=== PATIENT | male | born 1945 | race Caucasian/White ===

== ENCOUNTER 2017-09-04 09:37 | Day surgery (SDC) | payer MEDICARE, OTHER ==
[2017-09-04 10:17] LABS: HEMATOCRIT 39.7 % (42.0-52.0); HEMOGLOBIN 13.4 g/dl (13.5-17.5); MEAN CORPUSCULAR HEMOGLOBIN 32.9 pg (27.0-33.0); MEAN CORPUSCULAR HGB CONC 33.8 g/dl (32.0-36.5); MEAN CORPUSCULAR VOLUME 97.5 fl (80.0-96.0); PLATELET COUNT, AUTOMATED 205 10^3/uL (150-450); RED BLOOD COUNT 4.07 10^6/uL (4.30-6.10); RED CELL DISTRIBUTION WIDTH 12.2 % (11.5-14.5); WHITE BLOOD COUNT 4.6 10^3/uL (4.0-10.0)
[2017-09-04 10:36] LABS: ANION GAP 3 MEQ/L (8-16); BLOOD UREA NITROGEN 14 MG/DL (7-18); CARBON DIOXIDE LEVEL 31 MEQ/L (21-32); CHLORIDE LEVEL 109 MEQ/L (98-107); CREATININE FOR GFR 0.83 MG/DL (0.70-1.30); GLOMERULAR FILTRATION RATE > 60.0 (>42); GLUCOSE, FASTING 102 MG/DL (70-100); POTASSIUM SERUM 4.5 MEQ/L (3.5-5.1); SODIUM LEVEL 143 MEQ/L (136-145)
[2017-09-04] MEDS ORDERED: dexameTHASONE 4 MG/ML 1ML VIAL (J1100) As Ordered (11:23)
[2017-09-04] MEDS ORDERED: GLYCOPYRROLATE INJ 0.2 MG/ML 2 ML VIAL As Ordered ×2 (11:23)
[2017-09-04] MEDS ORDERED: ONDANSETRON 4MG/2ML VIAL (J2405) As Ordered (11:23)
[2017-09-04] MEDS ORDERED: METOCLOPRAMIDE INJ 10MG/2ML VIAL (J2765) As Ordered (11:23)
[2017-09-04] MEDS ORDERED: PROPOFOL 200 MG/20 ML VIAL As Ordered (11:23)
[2017-09-04] MEDS ORDERED: MIDAZOLAM INJ 2 MG/2 ML VIAL (J2250) As Ordered (11:23)
[2017-09-04] MEDS ORDERED: LIDOCAINE 2% INJ 100 MG/5 ML SDV (FOR ANES.) As Ordered (11:23)
[2017-09-04] MEDS ORDERED: ROCURONIUM BROMIDE 50 MG/5 ML VIAL As Ordered (11:23)
[2017-09-04] MEDS ORDERED: fentaNYL 100 MCG/2 ML INJECTION (J3010) As Ordered (11:23)
[2017-09-04] MEDS ORDERED: NEOSTIGMINE 10 MG/10 ML VIAL (J2710) As Ordered (11:24)
[2017-09-04] MEDS ORDERED: PHENYLephrine HCL 500 MCG/5 ML (100MCG/ML) SYRINGE (J2370) As Ordered (12:25)
[2017-09-04] MEDS: LIDOCAINE W/EPINEPHRINE 1% 20ML VIAL As Ordered (12:41)
[2017-09-04] MEDS: METHYLENE BLUE 0.5% (5MG/ML) 10 ML AMP (PROVAYBLUE)(Q9968 PER 1MG) As Ordered (12:41)
[2017-09-04] MEDS: OXYMETAZOLINE NASAL SPRAY (AFRIN) As Ordered (12:42)
[2017-09-04] MEDS ORDERED: IBUPROFEN 800 MG TAB PO (13:30)
[2017-09-04] MEDS ORDERED: HYDROMORPHONE HCL 0.5 MG/ 0.5 ML SYRINGE (J1170 PER 1) IV (13:30)
[2017-09-04] MEDS ORDERED: fentaNYL 100 MCG/2 ML INJECTION (J3010) IV (13:30)
[2017-09-04] MEDS ORDERED: LR 1,000 ML IV (13:30)
[2017-09-04] MEDS ORDERED: ONDANSETRON 4MG/2ML VIAL (J2405) IV (13:30)
[2017-09-04] MEDS ORDERED: PERCOCET 5MG/325MG TAB PO ×2 (13:30)
== END 2017-09-04 14:50 | disposition home or self-care (01) ==
LOC: M SDC 09:37
DX: J34.2 Deviated nasal septum (principal); I10 Essential (primary) hypertension; E78.5 Hyperlipidemia, unspecified; K21.9 Gastro-esophageal reflux disease without esophagitis; G47.30 Sleep apnea, unspecified; Z79.82 Long term (current) use of aspirin; Z79.899 Other long term (current) drug therapy
CPT/HCPCS: 30520

== ENCOUNTER 2018-02-07 07:40 | Day surgery (SDC) | payer MEDICARE, OTHER ==
[~2018-02-07 07:40] MED LIST: MIDAZOLAM INJ 2 MG/2 ML VIAL (J2250) As Ordered
[2018-02-07] MEDS: OFLOXACIN 0.3 % (OCUFLOX) OPTH SOL 5ML OD (08:59)
[2018-02-07] MEDS: PROPARACAINE 0.5% OPHTH SOL 15ML OD (08:59)
[2018-02-07] MEDS: TROPICAMIDE 1% OPHTH SOLN 2ML OD (08:59)
[2018-02-07] MEDS: PHENYLEPHRINE 2.5% OPHTH SOL 2ML OD (08:59)
[2018-02-07] MEDS: POVIDONE-IODINE 5% OPHTH PREP SOL 30ML As Ordered (10:08)
[2018-02-07] MEDS ORDERED: fentaNYL 100 MCG/2 ML INJECTION (J3010) As Ordered (10:09)
[2018-02-07] MEDS: LIDOCAINE 0.75%/EPINEPHRINE 0.025% IN BSS 1ML SYR INTRACAMERAL (OR ONLY) As Ordered (10:14)
[2018-02-07] MEDS: BALANCED SALT IRRIGATION SOLUTION 500ML BAG (FOR OR EYE MACHINE) As Ordered (10:16)
[2018-02-07] MEDS: CEFUROXIME 1MG/0.1ML INTRACAMERAL INJ As Ordered (10:19)
[2018-02-07] MEDS: DUOVISC (0.50ML VISCOAT/0.55ML PROVISC) OPHTH KIT As Ordered (10:19)
== END 2018-02-07 11:00 | disposition home or self-care (01) ==
LOC: M SDC 07:40
DX: H25.11 Age-related nuclear cataract, right eye (principal); I10 Essential (primary) hypertension; E78.5 Hyperlipidemia, unspecified; M12.9 Arthropathy, unspecified; K21.9 Gastro-esophageal reflux disease without esophagitis; R06.02 Shortness of breath; M54.9 Dorsalgia, unspecified; F41.9 Anxiety disorder, unspecified; H81.49 Vertigo of central origin, unspecified ear; J44.9 Chronic obstructive pulmonary disease, unspecified; R06.83 Snoring; G47.33 Obstructive sleep apnea (adult) (pediatric); Z79.899 Other long term (current) drug therapy; Z79.82 Long term (current) use of aspirin; Z85.46 Personal history of malignant neoplasm of prostate; Z72.0 Tobacco use
CPT/HCPCS: 66984

== ENCOUNTER → 2018-09-13 | Outpatient (CLI) | payer MEDICARE, OTHER ==
[~2018-09-13] MED LIST changes: +ABIL1TAB13 PO; +ALBU83IN INH; +AMLO5TAB6 PO; +ANOR1AER INH; +ASPI81TA26 PO; +BUSP5TA PO; +DIVA1CAP PO; +DOXY-350 PO; +LABE20TAB PO; +LANS30TA5 PO; +LOSA100T50 PO; -MIDAZOLAM INJ 2 MG/2 ML VIAL (J2250) As Ordered; +NIAC500T5 PO; +OCUVTAB PO; +PERCOCET PO; +PROAAER10 INH; +SIMV20TA2 PO; +SYST1SOL OU
--- NOTE | 2018-09-13 09:36 | REP ---
LOW DOSE LUNG SCREENING CT: Low dose lung screening CT performed in the axial plane. There are no prior studies for comparison. There is a calcified granuloma in the right middle lobe near the minor fissure. No suspicious nodular opacities are seen bilaterally. There are mild linear fibro atelectatic changes in both lower lobes. The heart is not enlarged. No pleural effusion is seen. Calcified lymph node is seen in the AP window. No mediastinal contour abnormality is seen. There is also small calcified lymph node in the right hilum. There are degenerative changes of the spine. IMPRESSION: LUNG RADS category 2 benign. Evidence of prior granulomatous disease. No suspicious nodular opacity seen bilaterally. Followup lung screening CT recommended in 12 months. Electronically Signed by Wesley Du MD 09/13/2018 07:23 P
== END ==
LOC: M RAD 07:29
PROVIDERS: ATTEND Internal Medicine Pulmonary Disease
DX: F17.210 Nicotine dependence, cigarettes, uncomplicated (principal)

== ENCOUNTER → 2019-10-08 | Outpatient (CLI) | payer MEDICARE, OTHER ==
[~2019-10-08] MED LIST changes: +AMLO1TAB24 PO; -AMLO5TAB6 PO; -SIMV20TA2 PO; +SIMV20TA22 PO
--- NOTE | 2019-10-08 10:59 | REP ---
REASON: Tobacco abuse. Followup. COMPARISON: 09/13/2018 As per the protocol, only lung window images were sent to the read station for interpretation. There are no new abnormal nodules, masses, or opacities. Grossly, the mediastinum and pulmonary reynaldo are stable. Grossly, the imaged upper abdomen and imaged osseous structures are stable. IMPRESSION: Stable lung RADS category 2 exam. Electronically Signed by Rupert Kelsey DO 10/08/2019 05:19 P
== END ==
LOC: M RAD 06:49
PROVIDERS: ATTEND Physician Assistant
DX: F17.218 Nicotine dependence, cigarettes, with other nicotine-induced disorders (principal)

== ENCOUNTER → 2020-06-05 | Outpatient (CLI) | payer MEDICARE, OTHER ==
[~2020-06-05] MED LIST changes: +COQ-100C5 PO; +LEVO500T3 PO; +NEUR100C PO
== END ==
LOC: M LABSMTC 08:06
PROVIDERS: ATTEND Anesthesiology
DX: Z01.812 Encounter for preprocedural laboratory examination (principal); Z20.822 Contact with and (suspected) exposure to COVID-19

== ENCOUNTER 2020-06-10 06:47 | Day surgery (SDC) | payer MEDICARE, OTHER ==
[~2020-06-10] VITALS: Ht 172.7 cm; Wt 85.3 kg
[~2020-06-10 06:47] MED LIST changes: +CEFUROXIME 1MG/0.1ML INTRACAMERAL INJ As Ordered ONE; +DUOVISC (0.50ML VISCOAT/0.55ML PROVISC) OPHTH KIT As Ordered ONE; +POVIDONE-IODINE 5% OPHTH PREP SOL 30ML As Ordered ONE
[2020-06-10] MEDS ORDERED: OFLOXACIN 0.3 % (OCUFLOX) OPTH SOL 5ML OS ONE (07:00)
[2020-06-10] MEDS ORDERED: TROPICAMIDE 1% OPHTH SOLN 2ML OS ONE (07:00)
[2020-06-10] MEDS ORDERED: PHENYLEPHRINE 2.5% OPHTH SOL 2ML OS ONE (07:00)
[2020-06-10] MEDS ORDERED: PROPARACAINE 0.5% OPHTH SOL 15ML OS ONE (07:00)
[2020-06-10] MEDS ORDERED: MIDAZOLAM INJ 2MG/2ML VIAL (J2250 PER 1MG) As Ordered ONE (07:17)
[2020-06-10] MEDS ORDERED: fentaNYL 100 MCG/2 ML INJECTION (J3010) As Ordered ONE (07:17)
[2020-06-10] MEDS ORDERED: BSS IRR 500ML/OMIDRIA 4ML IRR BAG (OR ONLY) As Ordered ONE (09:02)
[2020-06-10 09:45] VITALS: BP 134/75
--- NOTE | 2020-06-11 12:22 | RO ---
OPERATIVE NOTE DATE OF OPERATION: 06/10/2020 PREOPERATIVE DIAGNOSIS: 1. Visually significant nuclear sclerotic cataract, left eye. POSTOPERATIVE DIAGNOSIS: 1. Visually significant nuclear sclerotic cataract, left eye. PROCEDURE: 1. Cataract extraction with use of phacoemulsification, and placement of intraocular lens, AU00T0, 20.5 D, left eye. SURGEON: Julio C Martinez DO ANESTHESIA: Local (Omidria with MAC) COMPLICATIONS: None POSTOPERATIVE CONDITION: Stable INDICATIONS FOR SURGERY: 1. Blurred vision affecting patient's activities of daily living. DESCRIPTION OF PROCEDURE: The patient was seen in the preoperative area and properly identified. The correct operative eye was identified and marked. The patient received topical anesthetic, antibiotics, and topical dilating drops. The patient was then transferred to the operating room. The correct side was re-identified and a time-out was performed. The eye was prepped and draped in a sterile fashion. The eyelids were isolated with Tegaderm tape and the lids were held open with an adjustable speculum. A 1.0mm paracentesis incision was made. Omidria was then injected into the anterior chamber. Viscoelastic was then injected into the anterior chamber through the paracentesis. Using a 2.4mm sharp-tipped keratome, the anterior chamber was entered via a temporal clear cornea incision. A continuous curvilinear capsulorrhexis was created with Utrata forceps. Hydrodissection was performed with BSS on a blunt cannula until the nucleus was able to rotate freely. The crystalline lens was phacoemulsified and aspirated. Irrigation/aspiration was used to remove the cortical material Cohesive viscoelastic was placed into the capsular bag to deepen it. The implant was placed into the capsular bag and allowed to unfold. Placement was confirmed by visualizing the anterior capsulorrhexis. Irrigation/aspiration was used to remove the viscoelastic. The clear corneal incision was hydrated with BSS on a blunt cannula. The lens was well positioned. Intracameral antibiotic was injected into the anterior chamber. The incisions were then tested for leaks and found to be negative. The eye was then palpated for appropriate pressure and adjusted accordingly with BSS. The eyelid speculum was then carefully removed. A shield was placed over the eye. The patient tolerated the procedure well and was discharge to the recovery unit in a stable condition.
== END 2020-06-10 10:04 | disposition home or self-care (01) ==
LOC: M SDC 06:47
PROVIDERS: ATTEND Ophthalmology
DX: H25.12 Age-related nuclear cataract, left eye (principal); I10 Essential (primary) hypertension; E78.5 Hyperlipidemia, unspecified; K21.9 Gastro-esophageal reflux disease without esophagitis; F41.9 Anxiety disorder, unspecified; F17.218 Nicotine dependence, cigarettes, with other nicotine-induced disorders; J44.9 Chronic obstructive pulmonary disease, unspecified; G47.33 Obstructive sleep apnea (adult) (pediatric); Z79.82 Long term (current) use of aspirin; Z79.899 Other long term (current) drug therapy; Z85.46 Personal history of malignant neoplasm of prostate
CPT/HCPCS: 66984; J1097; J2250; J3010; V2632

== ENCOUNTER → 2020-10-18 | Outpatient (CLI) | payer MEDICARE, OTHER ==
[~2020-10-18] MED LIST changes: -CEFUROXIME 1MG/0.1ML INTRACAMERAL INJ As Ordered ONE; -DUOVISC (0.50ML VISCOAT/0.55ML PROVISC) OPHTH KIT As Ordered ONE; -POVIDONE-IODINE 5% OPHTH PREP SOL 30ML As Ordered ONE
--- NOTE | 2020-10-18 10:58 | REP ---
INDICATION: ABN FINDINGS OF LUNG FIELD. COMPARISON: Low-dose CT 10/08/2019, 09/13/2018 TECHNIQUE: Noncontrast CT with coronal and sagittal reconstructions. FINDINGS: Lung bases show a curvilinear scar in the medial basal segment left lower lobe with focal nodular thickening of that scar as it abuts the pleura this is unchanged for 2 years. There is minor curvilinear scarring in the medial basal segment of the right lower lobe as well as calcified granuloma lateral segment right middle lobe. There is minor apical pleural scarring bilaterally, stable. Heart size grossly enlarged. There are a few coronary artery calcifications and calcifications at the aortic arch and descending aorta without aneurysm. No pericardial thickening or effusion. No pathologic sized mediastinal adenopathy. Calcified nodes in the AP window. No axillary or supraclavicular mass. Spondylosis diffusely in the thoracic and upper lumbar spine without compression deformity or destructive lesion. The sternum, manubrium, clavicles, scapulae, humeral heads and ribs are without acute finding. The upper abdomen shows no definite hiatal hernia. Upper abdominal organs including those portions of liver, spleen, adrenal glands, upper poles of kidneys and pancreas were intact. No calcified gallstones evident. IMPRESSION: 1. Stable CT for 2 years. There is a nodular thickening of the curvilinear scarring of the medial basal segment of the left lower lobe, unchanged. Some minor curvilinear scarring in the medial basal segment right lower lobe and a calcified granuloma are again noted. Few granulomatous nodes in mediastinum suggest. No other significant or acute finding. Stable exam. <Electronically signed by Eleuterio Ha > 10/18/20 [id number]
== END ==
LOC: M PLAIMG 08:26
PROVIDERS: ATTEND Physician Assistant
DX: R91.8 Other nonspecific abnormal finding of lung field (principal); J98.4 Other disorders of lung; J84.10 Pulmonary fibrosis, unspecified

== ENCOUNTER → 2021-12-29 | Outpatient (CLI) | payer MEDICARE, OTHER ==
[~2021-12-29] MED LIST changes: +ALBU2.5V10 INH; -ALBU83IN INH; +BARIUM SULFATE 700 MG TABLET (E-Z-DISK) As Ordered ONE; +DIVA125C6 PO; -DIVA1CAP PO; +E-Z-PAQUE 96% w/w SUSP 176GM BTL As Ordered ONE; +LEVO1TAB39 PO; -LEVO500T3 PO; +LOSA100T45 PO; -LOSA100T50 PO; +VARIBAR NECTAR 40% w/v 240ML SUSP BTL As Ordered ONE; +VARIBAR PUDDING 40% w/v 230ML TUBE As Ordered ONE
== END ==
LOC: M RAD 10:46
PROVIDERS: ATTEND Otolaryngology
DX: R13.19 Other dysphagia (principal)

== ENCOUNTER → 2022-04-27 | Outpatient (CLI) | payer MEDICARE, OTHER ==
[~2022-04-27] MED LIST changes: -BARIUM SULFATE 700 MG TABLET (E-Z-DISK) As Ordered ONE; -DOXY-350 PO; +DOXY-444 PO; -E-Z-PAQUE 96% w/w SUSP 176GM BTL As Ordered ONE; -VARIBAR NECTAR 40% w/v 240ML SUSP BTL As Ordered ONE; -VARIBAR PUDDING 40% w/v 230ML TUBE As Ordered ONE
== END ==
LOC: M PLAIMG 10:17
PROVIDERS: ATTEND Physician Assistant
DX: R91.8 Other nonspecific abnormal finding of lung field (principal); I70.0 Atherosclerosis of aorta; I25.10 Atherosclerotic heart disease of native coronary artery without angina pectoris; J98.4 Other disorders of lung; M95.4 Acquired deformity of chest and rib

== ENCOUNTER → 2022-07-31 | Outpatient (CLI) | payer MEDICARE, OTHER ==
[~2022-07-31] MED LIST changes: +ACET325C5 PO; +AZIT500T5 IV; +BUDE0.5S6 INH; +CEFT1INJ5 IV; +LIDOCAINE 1% MDV 20ML VIAL As Ordered ONE; -LOSA100T45 PO; +LOSA100T46 PO; +METH125VL IM; +PANT40TA29 PO; +SLF3ML IV; +VALS1TAB66 PO; +XANA0.5T PO
[2022-07-31 15:30] VITALS: BP 144/83
[2022-07-31 15:32] LABS: SOURCE, BODY FLUID TOT PROTEIN PLEURAL; TOTAL PROTEIN, BODY FLUID 3.5 G/DL (NOT ESTABLISHED)
== END ==
LOC: M IRPRO 13:17
PROVIDERS: ATTEND Nurse Practitioner Family
DX: J90 Pleural effusion, not elsewhere classified (principal); J95.811 Postprocedural pneumothorax

== ENCOUNTER → 2022-09-14 | Outpatient (CLI) | payer MEDICARE, OTHER ==
[~2022-09-14] MED LIST changes: -LIDOCAINE 1% MDV 20ML VIAL As Ordered ONE
== END ==
LOC: M PLAIMG 11:47
PROVIDERS: ATTEND Physician Assistant
DX: R91.8 Other nonspecific abnormal finding of lung field (principal); J84.9 Interstitial pulmonary disease, unspecified; J98.11 Atelectasis

== ENCOUNTER → 2022-11-22 | Outpatient (CLI) | payer MEDICARE, OTHER ==
[~2022-11-22] MED LIST changes: +E-Z-GAS II EFFERVESCENT PACKET (SODIUM BICARB./CITRIC ACID/SIMETHICONE) As Ordered ONE; +E-Z-HD 98% w/w 340GM SUSP BTL As Ordered ONE; +E-Z-PAQUE 96% w/w SUSP 176GM BTL As Ordered ONE
== END ==
LOC: M RAD 09:08
PROVIDERS: ATTEND Internal Medicine Gastroenterology
DX: R13.10 Dysphagia, unspecified (principal); K21.9 Gastro-esophageal reflux disease without esophagitis; K22.89 Other specified disease of esophagus

== ENCOUNTER → 2023-01-03 | Outpatient (CLI) | payer MEDICARE, OTHER ==
[~2023-01-03] MED LIST changes: -E-Z-GAS II EFFERVESCENT PACKET (SODIUM BICARB./CITRIC ACID/SIMETHICONE) As Ordered ONE; -E-Z-HD 98% w/w 340GM SUSP BTL As Ordered ONE; -E-Z-PAQUE 96% w/w SUSP 176GM BTL As Ordered ONE
[2023-01-03 11:30] VITALS: TEMP 98
[2023-01-03 13:15] VITALS: BP 150/80; O2SAT 97
== END ==
LOC: M IRPRO 11:20
PROVIDERS: ATTEND Internal Medicine Cardiovascular Disease
DX: J90 Pleural effusion, not elsewhere classified (principal)

== ENCOUNTER → 2023-02-12 | Day surgery (SDC) | payer MEDICARE, OTHER ==
[~2023-02-12] VITALS: Ht 170.2 cm; Wt 87.5 kg
[~2023-02-12] MED LIST changes: +ACID1TAB PO; +ALBU6.7H6 INH; +BUME1TAB3 PO; +ELIQ2.5T PO; +ENTR1TAB PO; +GABA-282 PO; +IPRA0.00 INH; +LIDOCAINE 2% 100MG/5ML SDV (FOR ANES.) As Ordered ONE; +METO1TAB87 PO; +NS 1,000 ML IV ONE; +POTA10CA60 PO; +TREL1AER INH; +fentaNYL 100 MCG/2 ML INJECTION As Ordered ONE; +propofoL 200 MG/20 ML VIAL As Ordered ONE
[2023-02-12 14:19] VITALS: BP 140/67; TEMP 96.3; O2SAT 96
== END | disposition home or self-care (01) ==
LOC: M OPP 11:24
PROVIDERS: ATTEND Internal Medicine Gastroenterology
DX: R13.10 Dysphagia, unspecified (principal); K21.9 Gastro-esophageal reflux disease without esophagitis; I11.0 Hypertensive heart disease with heart failure; I50.9 Heart failure, unspecified; J44.9 Chronic obstructive pulmonary disease, unspecified; E78.00 Pure hypercholesterolemia, unspecified; Z79.899 Other long term (current) drug therapy; Z79.82 Long term (current) use of aspirin; Z87.891 Personal history of nicotine dependence
CPT/HCPCS: 43235; J3010

== ENCOUNTER → 2023-03-07 | Outpatient (CLI) | payer MEDICARE, OTHER ==
[~2023-03-07] MED LIST changes: -LIDOCAINE 2% 100MG/5ML SDV (FOR ANES.) As Ordered ONE; -NS 1,000 ML IV ONE; -fentaNYL 100 MCG/2 ML INJECTION As Ordered ONE; -propofoL 200 MG/20 ML VIAL As Ordered ONE
[2023-03-07 10:45] VITALS: TEMP 96.9
[2023-03-07 13:15] VITALS: BP 127/76; O2SAT 98
== END ==
LOC: M IRPRO 10:21
PROVIDERS: ATTEND Nurse Practitioner Family
DX: J90 Pleural effusion, not elsewhere classified (principal); J95.811 Postprocedural pneumothorax

== ENCOUNTER → 2023-06-13 | Outpatient (CLI) | payer MEDICARE, OTHER | LOC: M SLEEP 20:00 | PROVIDERS: ATTEND Internal Medicine Pulmonary Disease | DX: G47.33 Obstructive sleep apnea (adult) (pediatric) (principal) ==

== ENCOUNTER → 2024-02-14 | Outpatient (REF) | payer MEDICARE, OTHER ==
[~2024-02-14] MED LIST changes: +DOXY-440 PO; -DOXY-444 PO; +GABA-1172 PO; -GABA-282 PO; -POTA10CA60 PO; +POTA10CA70 PO
[2024-02-14 12:54] LABS: BASO % 0.4 % (0.0-1.0); EOS # 0.1 10^3/uL (0.0-0.5); HEMATOCRIT 29.4 % (42.0-52.0); HEMOGLOBIN 9.8 g/dl (13.5-17.5); LYMPH # 1.4 10^3/uL (1.5-5.0); MEAN CORPUSCULAR HEMOGLOBIN 32.8 pg (27.0-33.0); MEAN CORPUSCULAR HGB CONC 33.3 g/dl (32.0-36.5); MEAN CORPUSCULAR VOLUME 98.3 fl (80.0-96.0); MONO # 0.6 10^3/uL (0.0-0.8); MONO % 11.1 % (2.0-8.0); NEUTROPHILS # 3.2 10^3/uL (1.5-8.5); NEUTROPHILS % 60.3 % (36.0-66.0); PLATELET COUNT, AUTOMATED 273 10^3/uL (150-450); RED BLOOD COUNT 2.99 10^6/uL (4.30-6.10); WHITE BLOOD COUNT 5.2 10^3/uL (4.0-10.0)
[2024-02-14 12:59] LABS: ALBUMIN 3.7 G/DL (3.2-5.2); ALKALINE PHOSPHATASE 56 U/L (40-129); ALT/SGPT < 9 U/L (7.0-40); AST/SGOT 16 U/L (<34); BILIRUBIN,TOTAL 0.3 MG/DL (0.3-1.2); BLOOD UREA NITROGEN 16 MG/DL (9-23); CALCIUM LEVEL 9.6 MG/DL (8.3-10.6); CARBON DIOXIDE LEVEL 29 MMOL/L (20-31); CHLORIDE LEVEL 102 MMOL/L (98-107); CREATININE FOR GFR 1.23 MG/DL (0.70-1.30); GLOMERULAR FILTRATION RATE > 60.0 (>35); GLUCOSE, FASTING 92 MG/DL (74-106); IRON (FE) 67 UG/DL (65-175); PERCENT SATURATION 20.9 % (19.7-50.0); POTASSIUM SERUM 4.5 MMOL/L (3.5-5.1); SODIUM LEVEL 136 MMOL/L (136-145); TOTAL IRON BINDING CAPACITY 321 UG/DL (250-425); TOTAL PROTEIN 7.7 G/DL (5.7-8.2)
[2024-02-14 13:00] LABS: FREE T4 1.34 NG/DL (0.89-1.76)
[2024-02-14 13:01] LABS: THYROID STIMULATING HORMONE 2.305 uIU/ML (0.55-4.78)
[2024-02-14 13:02] LABS: VITAMIN B12 LEVEL 1198 PG/ML (211-911)
== END ==
LOC: M SFHCPLAZ 10:48
PROVIDERS: ATTEND Internal Medicine Hematology
DX: D64.9 Anemia, unspecified (principal)

== ENCOUNTER 2024-03-18 10:19 | Outpatient (CLI) | payer MEDICARE, OTHER ==
[~2024-03-18] VITALS: Ht 170.2 cm; Wt 88.5 kg
[~2024-03-18 10:19] MED LIST changes: +ALBUTEROL SULFATE 2.5MG/0.5ML INH NEB SOLN INH PRN; +EPINEPHrine INJ 1 MG/ML 1ML AMP IM PRN; +diphenhydrAMINE 50MG/ML VIAL IV PRN; +methylPREDNISolone 125MG 2ML VIAL IV PRN
[2024-03-18 10:25] VITALS: BP 130/77; O2SAT 96
[2024-03-18] MEDS: IRON SUCROSE 200 MG IVP IV ONE (10:27)
[2024-03-18 11:10] VITALS: BP 123/70; O2SAT 95
== END 2024-03-18 11:15 ==
LOC: M INFU 10:19
PROVIDERS: ATTEND Internal Medicine Hematology
DX: D64.9 Anemia, unspecified (principal); Z88.8 Allergy status to other drugs, medicaments and biological substances
CPT/HCPCS: 96374; J1756

== ENCOUNTER 2024-04-01 10:35 | Outpatient (CLI) | payer MEDICARE, OTHER ==
[2024-04-01 10:35] VITALS: BP 110/54; O2SAT 96
[2024-04-01] MEDS: IRON SUCROSE 200MG IVP IV ONE (10:39)
[2024-04-01 11:12] VITALS: BP 129/58; O2SAT 95
== END 2024-04-01 16:05 ==
LOC: M INFU 10:35
PROVIDERS: ATTEND Internal Medicine Hematology
DX: D64.9 Anemia, unspecified (principal); Z88.8 Allergy status to other drugs, medicaments and biological substances
CPT/HCPCS: 96374; J1756

== ENCOUNTER 2024-04-15 11:33 | Outpatient (CLI) | payer MEDICARE, OTHER ==
[~2024-04-15] VITALS: Ht 170.2 cm; Wt 88.0 kg
[2024-04-15] MEDS: IRON SUCROSE 200 MG IVP IV ONE (11:40)
[2024-04-15 11:45] VITALS: BP 162/70; O2SAT 96
[2024-04-15] MEDS ORDERED: IRON SUCROSE 200 MG IVP IV ONE (16:30)
== END 2024-04-15 12:44 | disposition home or self-care (01) ==
LOC: M INFU 11:33
PROVIDERS: ATTEND Internal Medicine Hematology
DX: D64.9 Anemia, unspecified (principal); Z88.8 Allergy status to other drugs, medicaments and biological substances
CPT/HCPCS: 96374; J1756

== ENCOUNTER 2024-05-16 10:33 | Day surgery (SDC) | payer MEDICARE, OTHER ==
[~2024-05-16] VITALS: Ht 170.2 cm; Wt 90.3 kg
[~2024-05-16 10:33] MED LIST changes: -ALBUTEROL SULFATE 2.5MG/0.5ML INH NEB SOLN INH PRN; +CYAN500T14 PO; -EPINEPHrine INJ 1 MG/ML 1ML AMP IM PRN; +ERGO500029 PO; +VENTAER INH; -diphenhydrAMINE 50MG/ML VIAL IV PRN; -methylPREDNISolone 125MG 2ML VIAL IV PRN
[2024-05-16] MEDS ORDERED: LIDOCAINE 2% 100MG/5ML SDV (FOR ANES.) As Ordered ONE (11:34)
[2024-05-16] MEDS ORDERED: propofoL 200 MG/20 ML VIAL As Ordered ONE (11:35)
[2024-05-16 13:05] VITALS: TEMP 97.2
[2024-05-16 13:32] VITALS: BP 140/70; O2SAT 97
== END 2024-05-16 13:33 | disposition home or self-care (01) ==
LOC: M OPP 10:33
PROVIDERS: ATTEND Surgery
DX: K57.30 Diverticulosis of large intestine without perforation or abscess without bleeding (principal); K64.2 Third degree hemorrhoids; D50.9 Iron deficiency anemia, unspecified; K31.89 Other diseases of stomach and duodenum; K29.00 Acute gastritis without bleeding; I48.91 Unspecified atrial fibrillation; I50.9 Heart failure, unspecified; G47.33 Obstructive sleep apnea (adult) (pediatric); Z88.8 Allergy status to other drugs, medicaments and biological substances; Z79.82 Long term (current) use of aspirin; Z79.01 Long term (current) use of anticoagulants; Z79.51 Long term (current) use of inhaled steroids; Z79.899 Other long term (current) drug therapy; J44.9 Chronic obstructive pulmonary disease, unspecified; Z87.891 Personal history of nicotine dependence

== ENCOUNTER → 2024-07-15 | Outpatient (REF) | payer MEDICARE, OTHER ==
[~2024-07-15] MED LIST changes: +IPRA0.00; +MIRA3350 PO
== END ==
LOC: M LAB REF 17:24
PROVIDERS: ATTEND Otolaryngology
DX: H66.91 Otitis media, unspecified, right ear (principal)